=== PATIENT | female | born 1950 | race Caucasian/White ===

== ENCOUNTER 2025-02-18 23:52 | Inpatient (IN) | payer MEDICARE, OTHER ==
[~2025-02-18] VITALS: Ht 167.6 cm; Wt 131.0 kg
[2025-02-19] VITALS (26 sets, daily range): BP systolic 101–154; BP diastolic 43–87; PULSE 53–113; RESP 14–22; TEMP 96–98.2; O2SAT 97–99
[2025-02-19] MEDS ORDERED: 0.9% SODIUM CHLORIDE 10 ML SYRINGE IVP PRN
[2025-02-19] MEDS: DEXTROSE 50%-WATER 25 GM/50 ML SYRINGE IVP ONE ×3 (00:07→09:45)
[2025-02-19] MEDS: FUROSEMIDE 40 MG/4 ML VIAL IVP ONE (00:07)
[2025-02-19 00:15] LABS: ABG BASE EXCESS -10.4 mmol/L (-2.0-3.0); ABG CARBOXYHEMOGLOBIN 0.6 % (0.5-1.5); ABG HCO3 16.6 mmol/L (21.0-28.0); ABG METHEMOGLOBIN 1.0 % (0.0-1.5); ABG OXYGEN CONTENT 12.5 mL/dL (15.0-23.0); ABG OXYGEN SATURATION 99.8 % (94.0-98.0); ABG OXYHEMOGLOBIN 98.2 % (94.0-98.0); ABG PCO2 41 mmHg (32.0-45.0); ABG TOTAL HEMOGLOBIN 8.6 G/dL (12.0-16.0); FRACTIONATED INSPIRED OXYGEN 60.0 % (21-100.0); PO2, ARTERIAL BG 239.8 mmHg (83.0-108.0); SOURCE, BLOOD GAS ARTERIAL; TEMPERATURE, FAHRENHEIT, BG 98.6 FAHREN (96.0-98.6)
[2025-02-19 00:16] LABS: ABG PH 7.237 (7.350-7.450); ALLEN TEST, BLOOD GAS Positive; FLOW, BLOOD GAS 0.00 L/min (0.00-15.00); O2 DEVICE,BLOOD GAS BIPAP (ROOM AIR); SITE, BLOOD GAS LFT RADIAL
[2025-02-19 00:28] LABS: COVID AG,FIA SOURCE NASAL SWAB
[2025-02-19 00:33] LABS: PLATELET COUNT (AUTO) 212 K/uL (150-450); RED BLOOD CELL COUNT(AUTO) 2.62 MIL/uL (4.00-5.20); RED CELL DISTRIBUTION WIDTH 14.4 % (11.5-14.5); WHITE BLOOD COUNT (AUTO) 19.6 K/uL (4.5-11.0)
[2025-02-19 00:33] LABS: SARS-COV2 (COVID) ANTIGEN,FIA Negative (Negative)
[2025-02-19 00:34] LABS: INFLUENZA TYPE A NEGATIVE FOR TYPE A (NEGATIVE); INFLUENZA TYPE B POSITIVE FOR TYPE B (NEGATIVE)
[2025-02-19 00:38] LABS: CALCIUM, TOTAL 8.0 mg/dL (8.8-10.5); CREATININE 3.85 mg/dL (0.60-1.30); GLOMERULAR FILTR. RATE CALC 11 mL/min (>60); GLUCOSE,RANDOM 147 mg/dL (70-110); SODIUM SERUM 130 mmol/L (136-145)
[2025-02-19 00:43] LABS: ASPARTATE AMINOTRANSFERASE 33 U/L (15-37); CREATINE KINASE, TOTAL ONLY 212 U/L (26-192); GLUCOSE,RANDOM 148 mg/dL (70-110); TOTAL PROTEIN, SERUM 5.5 g/dL (6.4-8.2)
[2025-02-19 00:48] LABS: TROPONIN I-HIGH SENSITIVITY 5 ng/L (<51)
[2025-02-19 00:51] LABS: UREA NITROGEN, BLOOD 110 mg/dL (7-18)
[2025-02-19 00:52] LABS: LACTIC ACID 2.1 mmol/L (0.4-2.0)
[2025-02-19] MEDS: OSELTAMIVIR PHOSPHATE 30 MG CAPSULE PO ONE (01:00)
[2025-02-19] MEDS: SODIUM ZIRCONIUM CYCLOSILICATE 10 GM POWDER PACKET PO ONE ×2 (01:00→09:30)
[2025-02-19] MEDS: SODIUM CHLORIDE 0.9% IV ONE (01:17)
[2025-02-19] MEDS: LEVOFLOXACIN 500 MG/D5% WATER 100 ML IV ONE (01:17)
[2025-02-19] MEDS: LORazepam 2 MG/ML VIAL IVP ONE ×2 (01:18→05:16)
[2025-02-19] MEDS: CALCIUM GLUCONATE 100 MG/ML 10 ML IVP ONE ×3 (01:18→15:30)
[2025-02-19] MEDS: CALCIUM CHLORIDE 100 MG/ML 10 ML SYRINGE IVP ONE (01:19)
[2025-02-19] MEDS: INSULIN REGULAR, HUMAN 100 UNITS/ML IVP ONE ×2 (01:25→09:50)
[2025-02-19 02:36] LABS: GLUCOMETER DEV NAME(LOC) ERT.7; GLUCOSE,POINT OF CARE 227 MG/DL (70-110)
[2025-02-19 02:36] LABS: GLUCOMETER DEV NAME(LOC) ERT.7; GLUCOSE,POINT OF CARE 100 MG/DL (70-110)
[2025-02-19] MEDS: PANTOPRAZOLE SODIUM 40 MG/VIAL IVP ONE (03:19)
[2025-02-19 03:20] LABS: APPEARANCE,URINE CLEAR (CLEAR); GLUCOSE, URINE (UA) 70-100 mg/dL (NEGATIVE); LEUKOCYTE ESTERASE ,URINE NEGATIVE (NEGATIVE); NITRATE,URINE NEGATIVE (NEGATIVE); OCCULT BLOOD,URINE NEGATIVE (NEGATIVE); SPECIFIC GRAVITIY, URINE 1.016 (1.003-1.030)
[2025-02-19 03:23] LABS: CALCIUM, TOTAL 8.5 mg/dL (8.8-10.5); CREATININE 3.59 mg/dL (0.60-1.30); GLOMERULAR FILTR. RATE CALC 12.0 mL/min (>60); GLUCOSE,RANDOM 181.0 mg/dL (70-110); SODIUM SERUM 130.0 mmol/L (136-145)
[2025-02-19 03:31] LABS: UREA NITROGEN, BLOOD 106.0 mg/dL (7-18)
[2025-02-19 03:32] LABS: SQUAMOUS EPITHELIAL CELL,UR Rare /LPF (None Seen)
[2025-02-19] MEDS: IDARUCIZUMAB IV ONE (03:39)
[2025-02-19] MEDS: HUM PROTHROMBIN CPLX(PCC)4FACT 1,000 UNIT VIAL IVP ONE ×2 (03:42→04:00)
[2025-02-19 04:21] LABS: GLUCOMETER DEV NAME(LOC) ERT.7; GLUCOSE,POINT OF CARE 146 MG/DL (70-110)
[2025-02-19 05:26] LABS: GLUCOMETER DEV NAME(LOC) ERT.7; GLUCOSE,POINT OF CARE 140 MG/DL (70-110)
[2025-02-19 06:31] LABS: GLUCOMETER DEV NAME(LOC) ERT.7; GLUCOSE,POINT OF CARE 127 MG/DL (70-110)
[2025-02-19 07:21] LABS: GLUCOMETER DEV NAME(LOC) ERT.7; GLUCOSE,POINT OF CARE 121 MG/DL (70-110)
[2025-02-19] MEDS ORDERED: DABI110C PO (07:59)
[2025-02-19] MEDS ORDERED: GABA-1216 PO (07:59)
[2025-02-19 08:24] LABS: PLATELET COUNT (AUTO) 214 K/uL (150-450); RED BLOOD CELL COUNT(AUTO) 2.76 MIL/uL (4.00-5.20); RED CELL DISTRIBUTION WIDTH 14.1 % (11.5-14.5); WHITE BLOOD COUNT (AUTO) 24.9 K/uL (4.5-11.0)
[2025-02-19 08:25] LABS: CALCIUM, TOTAL 8.7 mg/dL (8.8-10.5); CREATININE 3.77 mg/dL (0.60-1.30); GLOMERULAR FILTR. RATE CALC 12.0 mL/min (>60); GLUCOSE,RANDOM 109.0 mg/dL (70-110); SODIUM SERUM 130.0 mmol/L (136-145)
[2025-02-19] MEDS ORDERED: ATOR40TA28 PO (08:28)
[2025-02-19] MEDS ORDERED: HYDR-4769 PO (08:28)
[2025-02-19] MEDS ORDERED: VENL-68 PO (08:28)
[2025-02-19] MEDS ORDERED: FAMO20 PO (08:28)
[2025-02-19] MEDS ORDERED: CYAN-42 IM (08:28)
[2025-02-19] MEDS ORDERED: AMLO-257 PO (08:28)
[2025-02-19] MEDS ORDERED: ANAS1TAB50 PO (08:28)
[2025-02-19] MEDS ORDERED: CHOL500013 PO (08:28)
[2025-02-19] MEDS ORDERED: EMPA25TA3 PO (08:28)
[2025-02-19] MEDS ORDERED: FURO40TA6 PO (08:28)
[2025-02-19] MEDS ORDERED: METO-325 PO (08:28)
[2025-02-19] MEDS ORDERED: LOSA-381 PO (08:28)
[2025-02-19] MEDS ORDERED: OLAN10TA74 PO (08:28)
[2025-02-19 08:29] LABS: UREA NITROGEN, BLOOD 105.0 mg/dL (7-18)
[2025-02-19 09:19] LABS: BAND NEUTROPHILS % (MANUAL) 12 % (0-5); LYMPHOCYTES % (MANUAL) 1 % (22-44); MONOCYTES % (MANUAL) 1 % (2-9); SEGMENTED NEUTROPHILS % 86 % (40-70)
[2025-02-19] MEDS: CALCIUM GLUCONATE 1,000 MG in DEXTROSE 5%-WATER 50 ML IV ONE (09:47)
[2025-02-19] MEDS: PHYTONADIONE 10 MG in SODIUM CHLORIDE 0.9% 50 ML IV ONE (10:42)
[2025-02-19] MEDS ORDERED: SODIUM CHLORIDE 0.9% 250 ML IV ONE (11:01)
[2025-02-19] MEDS ORDERED: HEPARIN SODIUM,PORCINE 1,000 UNITS/ML VIAL ONE (12:00)
[2025-02-19 13:09] LABS: PLATELET COUNT (AUTO) 208 K/uL (150-450); RED BLOOD CELL COUNT(AUTO) 2.89 MIL/uL (4.00-5.20); RED CELL DISTRIBUTION WIDTH 14.8 % (11.5-14.5); WHITE BLOOD COUNT (AUTO) 26.5 K/uL (4.5-11.0)
[2025-02-19 13:29] LABS: CALCIUM, TOTAL 9.0 mg/dL (8.8-10.5); CREATININE 3.85 mg/dL (0.60-1.30); GLOMERULAR FILTR. RATE CALC 11.0 mL/min (>60); GLUCOSE,RANDOM 119.0 mg/dL (70-110); SODIUM SERUM 130.0 mmol/L (136-145)
[2025-02-19 13:33] LABS: UREA NITROGEN, BLOOD 105.0 mg/dL (7-18)
[2025-02-19 13:35] LABS: ASPARTATE AMINOTRANSFERASE 44.0 U/L (15-37)
[2025-02-19 13:36] LABS: TOTAL PROTEIN, SERUM 6.5 g/dL (6.4-8.2)
[2025-02-19] MEDS: HEPARIN SODIUM,PORCINE 1,000 UNITS/ML VIAL IVP ONE ×2 (15:29)
[2025-02-19] MEDS: SODIUM BICARBONATE [ADULT] 8.4% 50 MEQ/50 ML SYRINGE IVP ONE (15:30)
[2025-02-19] MEDS ORDERED: SODIUM CHLORIDE 0.9% 500 ML IV ONE (17:45)
[2025-02-19] MEDS: DEXMEDETOMIDINE 400 MCG/NS 100 ML IV PRN (18:54)
[2025-02-20] VITALS (14 sets, daily range): BP systolic 77–137; BP diastolic 30–89; PULSE 71–118; RESP 10–22; TEMP 95.6–97.6; O2SAT 96–99
[2025-02-20 00:32] LABS: PLATELET COUNT (AUTO) 193 K/uL (150-450); RED BLOOD CELL COUNT(AUTO) 2.64 MIL/uL (4.00-5.20); RED CELL DISTRIBUTION WIDTH 14.3 % (11.5-14.5); WHITE BLOOD COUNT (AUTO) 17.3 K/uL (4.5-11.0)
[2025-02-20 00:47] LABS: GLOMERULAR FILTR. RATE CALC 30.0 mL/min (>60); SODIUM SERUM 137.0 mmol/L (136-145)
[2025-02-20 01:05] LABS: PHOSPHORUS 4.4 mg/dL (2.5-4.9)
[2025-02-20 01:11] LABS: CALCIUM, TOTAL 8.5 mg/dL (8.8-10.5); CREATININE 1.67 mg/dL (0.60-1.30); GLUCOSE,RANDOM 90.0 mg/dL (70-110); UREA NITROGEN, BLOOD 37.0 mg/dL (7-18)
[2025-02-20 05:40] LABS: PLATELET COUNT (AUTO) 182 K/uL (150-450); RED BLOOD CELL COUNT(AUTO) 2.64 MIL/uL (4.00-5.20); RED CELL DISTRIBUTION WIDTH 14.1 % (11.5-14.5); WHITE BLOOD COUNT (AUTO) 7.1 K/uL (4.5-11.0)
[2025-02-20 05:53] LABS: CALCIUM, TOTAL 8.3 mg/dL (8.8-10.5); CREATININE 1.77 mg/dL (0.60-1.30); GLOMERULAR FILTR. RATE CALC 28.0 mL/min (>60); GLUCOSE,RANDOM 89.0 mg/dL (70-110); SODIUM SERUM 137.0 mmol/L (136-145); UREA NITROGEN, BLOOD 37.0 mg/dL (7-18)
[2025-02-20] MEDS ORDERED: SODIUM CHLORIDE 0.9% 1,000 ML ONE (08:34)
[2025-02-20] MEDS ORDERED: ONDANSETRON HCL 4 MG/2 ML VIAL IVP PRN (09:00)
[2025-02-20] MEDS ORDERED: ALBUTEROL SULFATE 2.5 MG/0.5 ML NEB SOLUTION NEB PRN (09:00)
[2025-02-20] MEDS: ATORVASTATIN CALCIUM 40 MG TABLET PO SCH (09:00)
[2025-02-20] MEDS ORDERED: MAGNESIUM HYDROXIDE SUSPENSION 30 ML UDCUP PO PRN (09:00)
[2025-02-20] MEDS ORDERED: BISACODYL 10 MG RECTAL RECTAL SUPPOSITORY PR PRN (09:00)
[2025-02-20] MEDS: ANASTROZOLE 1 MG TABLET PO SCH (09:00)
[2025-02-20] MEDS: GABAPENTIN 100 MG CAPSULE PO SCH (09:00)
[2025-02-20] MEDS: DOCUSATE SODIUM 100 MG CAPSULE PO SCH (09:00)
[2025-02-20] MEDS: CHOLECALCIFEROL (VIT D3) 5,000 [125 MCG] UNITS CAPSULE PO SCH (09:00)
[2025-02-20] MEDS ORDERED: ZOLPIDEM TARTRATE 5 MG TABLET PO PRN (09:00)
[2025-02-20] MEDS ORDERED: DABIGATRAN ETEXILATE MESYLATE 110 MG PO SCH (09:00)
[2025-02-20] MEDS: OSELTAMIVIR PHOSPHATE 30 MG CAPSULE PO SCH (09:00)
[2025-02-20] MEDS ORDERED: HYDROCODONE/ACETAMINOPHEN 5-325 MG TABLET PO PRN (09:00)
[2025-02-20] MEDS ORDERED: ACETAMINOPHEN 325 MG TABLET PO PRN (09:00)
[2025-02-20] MEDS: *CLINICAL-CEFTAROLINE DOSING CLINICAL ONE (09:19)
[2025-02-20 10:29] LABS: ABG BASE EXCESS 2.7 mmol/L (-2.0-3.0); ABG CARBOXYHEMOGLOBIN 0.6 % (0.5-1.5); ABG HCO3 26.4 mmol/L (21.0-28.0); ABG METHEMOGLOBIN 0.3 % (0.0-1.5); ABG OXYGEN CONTENT 16.3 mL/dL (15.0-23.0); ABG OXYGEN SATURATION 97.1 % (94.0-98.0); ABG OXYHEMOGLOBIN 96.2 % (94.0-98.0); ABG PCO2 46 mmHg (32.0-45.0); ABG PH 7.393 (7.350-7.450); ABG TOTAL HEMOGLOBIN 12.0 G/dL (12.0-16.0); FRACTIONATED INSPIRED OXYGEN 32.0 % (21-100.0); PO2, ARTERIAL BG 87.8 mmHg (83.0-108.0); SOURCE, BLOOD GAS ARTERIAL; TEMPERATURE, FAHRENHEIT, BG 97.0 FAHREN (96.0-98.6)
[2025-02-20 10:30] LABS: ABG A-A DIFF O2 86.8 mmHg (10-20.0); ALLEN TEST, BLOOD GAS Positive; FLOW, BLOOD GAS 3.00 L/min (0.00-15.00); O2 DEVICE,BLOOD GAS CANNULA (ROOM AIR); SITE, BLOOD GAS RT RADIAL
[2025-02-20] MEDS ORDERED: HEPARIN SODIUM,PORCINE 1,000 UNITS/ML VIAL ONE (12:00)
[2025-02-20] MEDS ORDERED: HEPARIN SODIUM,PORCINE 5,000 UNITS/ML VIAL SQ SCH (16:00)
[2025-02-20] MEDS ORDERED: SODIUM CHLORIDE 0.9% 250 ML IV ONE (16:14)
[2025-02-20] MEDS: PANTOPRAZOLE SODIUM 40 MG/VIAL IVP SCH (16:33)
[2025-02-20] MEDS: CEFTAROLINE FOSAMIL 300 MG in DEXTROSE 5%-WATER 150 ML IV SCH (16:33)
[2025-02-20] MEDS: CYANOCOBALAMIN 1,000 MCG/ML VIAL IM SCH (16:34)
[2025-02-20] MEDS: LORazepam 2 MG/ML VIAL IVP ONE (18:51)
[2025-02-20] MEDS ORDERED: ZIPRASIDONE MESYLATE 20 MG/VIAL IM ONE (19:45)
[2025-02-21] VITALS: BP 114/83; PULSE 95; RESP 20; TEMP 97.6; O2SAT 97
[2025-02-21 04:00] VITALS: BP 76/48; PULSE 93; RESP 20; TEMP 97.6; O2SAT 97
[2025-02-21] MEDS: NOREPINEPHRINE 8 MG/0.9 % NACL 250 ML IV PRN (05:31)
[2025-02-21 06:12] LABS: PLATELET COUNT (AUTO) 197 K/uL (150-450); RED BLOOD CELL COUNT(AUTO) 2.79 MIL/uL (4.00-5.20); RED CELL DISTRIBUTION WIDTH 14.2 % (11.5-14.5); WHITE BLOOD COUNT (AUTO) 10.8 K/uL (4.5-11.0)
[2025-02-21 06:27] LABS: ASPARTATE AMINOTRANSFERASE 63.0 U/L (15-37); CALCIUM, TOTAL 8.1 mg/dL (8.8-10.5); CREATININE 1.88 mg/dL (0.60-1.30); GLOMERULAR FILTR. RATE CALC 26.0 mL/min (>60); SODIUM SERUM 137.0 mmol/L (136-145); TOTAL PROTEIN, SERUM 6.0 g/dL (6.4-8.2); UREA NITROGEN, BLOOD 24.0 mg/dL (7-18)
[2025-02-21 06:52] LABS: GLUCOSE,RANDOM 39.0 mg/dL (70-110)
[2025-02-21 08:00] VITALS: BP 123/90; PULSE 103; RESP 26; O2SAT 100
[2025-02-21] MEDS: DEXTROSE 50%-WATER 25 GM/50 ML SYRINGE IVP ONE (08:07)
[2025-02-21 08:15] LABS: BAND NEUTROPHILS % (MANUAL) 44 % (0-5); LYMPHOCYTES % (MANUAL) 3 % (22-44); MONOCYTES % (MANUAL) 3 % (2-9); RBC MORPHOLOGY COMMENT NORMAL RBC MORPH; SEGMENTED NEUTROPHILS % 50 % (40-70)
[2025-02-21 09:46] LABS: GLUCOMETER DEV NAME(LOC) ICUN.7; GLUCOSE,POINT OF CARE 58 MG/DL (70-110)
[2025-02-21 09:46] LABS: GLUCOMETER DEV NAME(LOC) ICUN.7; GLUCOSE,POINT OF CARE 128 MG/DL (70-110)
[2025-02-21] MEDS: DEXTROSE 10%-WATER 1,000 ML IV ONE (11:52)
[2025-02-21 12:00] VITALS: BP 122/64; PULSE 105; RESP 26; TEMP 95.7; O2SAT 94
[2025-02-21 12:11] LABS: GLUCOMETER DEV NAME(LOC) ICUN.7; GLUCOSE,POINT OF CARE 103 MG/DL (70-110)
[2025-02-21 16:00] VITALS: BP 90/48; PULSE 113; RESP 25; TEMP 96.6; O2SAT 94
[2025-02-21] MEDS: MORPHINE SULFATE 4 MG/ML SYRINGE IVP PRN (20:02)
[2025-02-21 20:49] VITALS: BP 96/80; PULSE 99; RESP 23; TEMP 98.2; O2SAT 91
[2025-02-22 00:41] VITALS: BP 93/54; PULSE 95; RESP 23; TEMP 98.2; O2SAT 93
[2025-02-22 04:37] VITALS: BP 116/101; PULSE 67; RESP 24; TEMP 98.1; O2SAT 93
[2025-02-22 08:00] VITALS: BP 111/93; PULSE 95; RESP 19; TEMP 97.3; O2SAT 98
[2025-02-22 16:00] VITALS: BP 89/39; PULSE 93; RESP 19; TEMP 97.7; O2SAT 98
[2025-02-22 19:57] VITALS: BP 117/55; PULSE 103; RESP 19; TEMP 98.4; O2SAT 95
[2025-02-23 03:44] VITALS: BP 112/59; PULSE 89; RESP 18; TEMP 97.3; O2SAT 89
[2025-02-23 08:44] VITALS: BP_SYST 70; BP_SYST 84; BP_DIAS 34; BP_DIAS 39; PULSE 88; RESP 16; TEMP 96.8; O2SAT 95
[2025-02-23 09:37] VITALS: TEMP 97.5
[2025-02-23 16:05] VITALS: BP 104/43; PULSE 62; RESP 20; TEMP 97.8; O2SAT 99
[2025-02-23 19:53] VITALS: BP 94/59; PULSE 85; RESP 18; TEMP 97.2; O2SAT 99
[2025-02-24 04:00] VITALS: BP 94/53; PULSE 99; RESP 20; TEMP 97.2; O2SAT 100
[2025-02-24 08:21] VITALS: BP 110/45; PULSE 113; RESP 18; TEMP 97.2; O2SAT 99
== END 2025-02-24 12:23 | disposition hospice, home (50) | DRG 871 ==
LOC: EMS 23:55 → EDH 02-19 07:28 → ICU 02-19 09:30 → 5S 02-21 18:05 → 6S 02-22 07:00
PROVIDERS: ADMIT Hospitalist; ATTEND Hospitalist
PROC: 5A1D70Z Performance of Urinary Filtration, Intermittent, Less than 6 Hours Per Day (ICD-10-PCS; principal; 2025-02-19)
PROC: 30233K1 Transfusion of Nonautologous Frozen Plasma into Peripheral Vein, Percutaneous Approach (ICD-10-PCS; 2025-02-19)
PROC: 5A09357 Assistance with Respiratory Ventilation, Less than 24 Consecutive Hours, Continuous Positive Airway Pressure (ICD-10-PCS; 2025-02-19)
PROC: 5A1D70Z Performance of Urinary Filtration, Intermittent, Less than 6 Hours Per Day (ICD-10-PCS; 2025-02-20)
DX: A41.89 Other specified sepsis (principal); G93.41 Metabolic encephalopathy; J96.01 Acute respiratory failure with hypoxia; J10.00 Influenza due to other identified influenza virus with unspecified type of pneumonia; N18.6 End stage renal disease; R53.2 Functional quadriplegia; J69.0 Pneumonitis due to inhalation of food and vomit; N17.9 Acute kidney failure, unspecified; Z66 Do not resuscitate; E87.1 Hypo-osmolality and hyponatremia; Z68.42 Body mass index [BMI] 45.0-49.9, adult; N39.0 Urinary tract infection, site not specified; D68.9 Coagulation defect, unspecified; D64.9 Anemia, unspecified; E11.649 Type 2 diabetes mellitus with hypoglycemia without coma; E66.01 Morbid (severe) obesity due to excess calories; E78.5 Hyperlipidemia, unspecified; F03.90 Unspecified dementia, unspecified severity, without behavioral disturbance, psychotic disturbance, mood disturbance, and anxiety; E87.5 Hyperkalemia; E86.0 Dehydration; Z20.822 Contact with and (suspected) exposure to COVID-19; T68.XXXA Hypothermia, initial encounter; X31.XXXA Exposure to excessive natural cold, initial encounter; F32.A Depression, unspecified; K21.9 Gastro-esophageal reflux disease without esophagitis; D63.8 Anemia in other chronic diseases classified elsewhere; E11.21 Type 2 diabetes mellitus with diabetic nephropathy; Z85.3 Personal history of malignant neoplasm of breast; I11.0 Hypertensive heart disease with heart failure; I48.91 Unspecified atrial fibrillation; Z79.01 Long term (current) use of anticoagulants; Z79.811 Long term (current) use of aromatase inhibitors; Z87.440 Personal history of urinary (tract) infections; Z88.0 Allergy status to penicillin; Z88.1 Allergy status to other antibiotic agents; Z88.2 Allergy status to sulfonamides
CPT/HCPCS: 70450; 71045; 71250; 72192; 74150; 80048; 80053; 80076; 81001; 82550; 82805; 82947; 82962; 83605; 83735; 83880; 84100; 84145; 84484; 85014; 85018; 85025; 85610; 85730; 86850; 86900; 86901; 86927; 87040; 87081; 87340; 87804; 90935; 92526; 92610; 93005; 93306; 93970; 94660; 99291; J0610; J0712; J1630; J1644; J1815; J1938; J1956; J2060; J2270; J2470; J2919; J3420; J3430; J3486; J3490; J7030; J7040; J7050; J7060; P9017; 36415-L1; 36415-TC